=== PATIENT | male | born 1995 | race African-American/Black ===

== ENCOUNTER 2019-01-14 02:06 | Observation (INO) | payer SELFPAY ==
[2019-01-14] MEDS ORDERED: NORMAL SALINE 250 ML IV PRN (02:17)
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
[2019-01-14] MEDS ORDERED: CEFAZOLIN 2 GM/D5W RTU 2 GM/50 ML RTUPB IV ONE (02:25)
[2019-01-14 02:26] LABS: ABSOLUTE BASOPHILS # (AUTO) 0.1 10^3/uL (0.0-0.2); ABSOLUTE EOSINOPHILS # (AUTO) 0.2 10^3/uL (0.0-0.6); ABSOLUTE LYMPHOCYTES (AUTO) 5.8 10^3/uL (0.5-4.7); ABSOLUTE MONOCYTES (AUTO) 0.9 10^3/uL (0.1-1.4); ABSOLUTE NEUT (AUTO) 4.4 10^3/uL (1.7-8.2); BASOPHILS % (AUTO) 1.2 % (0-2); EOSINOPHILS % (AUTO) 1.3 % (0-6); HEMATOCRIT 43.8 % (37.9-51.0); HEMOGLOBIN 15.6 g/dL (13.5-17.0); LYMPHOCYTES % (AUTO) 50.9 % (13-45); MEAN CORPUSCULAR HEMOGLOBIN 30.5 pg (27.0-33.4); MEAN CORPUSCULAR HGB CONC 35.7 g/dL (32.0-36.0); MEAN CORPUSCULAR VOLUME 85 fl (80-97); PLATELET COUNT 273 10^3/uL (150-450); RED BLOOD COUNT 5.13 10^6/uL (4.35-5.55); RED CELL DISTRIBUTION WIDTH 13.1 % (11.5-14.0); SEGMENTED NEUTROPHILS % (AUTO) 38.6 % (42-78); TOTAL CELLS COUNTED % (AUTO) 100 %; VENOUS BLOOD BASE EXCESS -2.3 mmol/L; VENOUS BLOOD PCO2 41.5 mmHg (35-63); VENOUS BLOOD PH 7.36 (7.30-7.42); WHITE BLOOD COUNT 11.3 10^3/uL (4.0-10.5)
[2019-01-14 02:32] LABS: INTERNATIONAL RATION (INR) 1.03; PROTHROMBIN TIME 13.5 SEC (11.4-15.4)
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
[2019-01-14] MEDS ORDERED: BUPIVACAINE HCL 0.25% /EPINEPHRINE INJ/PF 30 ML SDV ONE (02:38)
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
[2019-01-14 02:43] LABS: ALANINE AMINOTRANSFERASE 23 U/L (21-72); ALBUMIN 4.9 g/dL (3.5-5.0); ALKALINE PHOSPHATASE 86 U/L (38-126); ANION GAP 16 (5-19); ASPARTATE AMINO TRANSFERASE 33 U/L (17-59); BILIRUBIN,DIRECT 0.3 mg/dL (0.0-0.4); BILIRUBIN,TOTAL 0.8 mg/dL (0.2-1.3); BLOOD UREA NITROGEN 15 mg/dL (7-20); CALCIUM 9.7 mg/dL (8.4-10.2); CARBON DIOXIDE 22 mmol/L (22-30); CHLORIDE 105 mmol/L (98-107); GLUCOSE 107 mg/dL (75-110); SODIUM 143.4 mmol/L (137-145); TOTAL PROTEIN 8.4 g/dL (6.3-8.2)
[2019-01-14 02:52] LABS: POTASSIUM 2.9 mmol/L (3.6-5.0)
[2019-01-14] MEDS ORDERED: METRONIDAZOLE 500 MG/NS RTU 500 MG/100 ML RTUPB IV ONE (03:00)
[2019-01-14] MEDS ORDERED: MIDAZOLAM 2 MG/2 ML INJ ONE (03:22)
[2019-01-14] MEDS ORDERED: FENTANYL CITRATE INJ/PF 100 MCG/2 ML AMPUL ONE (03:22)
[2019-01-14] MEDS ORDERED: MORPHINE SULFATE 10 MG/ML INJ ONE ×2 (03:23→05:30)
[2019-01-14] MEDS ORDERED: PROPOFOL INJ 200 MG/20 ML VIAL IV ONE (03:23)
[2019-01-14] MEDS ORDERED: SUGAMMADEX SODIUM 200 MG/2 ML SDV IV ONE (04:02)
[2019-01-14] MEDS ORDERED: POTASSI CL 20 MEQ/D5-1/2NS 1L 1,000 ML IV PRN (04:24)
[2019-01-14] MEDS ORDERED: MORPHINE SULFATE 10 MG/ML INJ IV PRN ×7 (04:24→10:30)
[2019-01-14] MEDS ORDERED: ONDANSETRON HCL INJ/PF 4 MG/2 ML SDV IV PRN (04:24)
[2019-01-14] MEDS ORDERED: FUROSEMIDE INJ/PF 40 MG/4 ML SDV ONE ×2 (04:36→05:25)
[2019-01-14] MEDS ORDERED: DEXAMETHASONE SOD PHOSPHATE INJ 4 MG/1 ML VIAL ONE (04:47)
[2019-01-14] MEDS ORDERED: DEXAMETHASONE SOD PHOS INJ 10 MG/1 ML VIAL ONE (04:48)
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
[2019-01-14] MEDS ORDERED: SUCCINYLCHOLINE CHLORIDE INJ 200 MG/10 ML VIAL ONE (05:00)
[2019-01-14] MEDS ORDERED: ROCURONIUM BROMIDE INJ 50 MG/5 ML VIAL IV ONE ×2 (05:00→14:40)
[2019-01-14] MEDS ORDERED: RACEPINEPHRINE HCL 2.25% NEB 0.5 ML AMPUL NEB ONE (05:06)
--- NOTE | 2019-01-14 05:09 | RADIOLOGY REPORT (SQ) ---
CLINICAL HISTORY: post op COMPARISON: January 14, 2019. TECHNIQUE: XR CHEST 1 VIEW 01/14/2019 4:32 AM CDT FINDINGS: Cardiac silhouette is normal in size. There are diffuse opacities involving both lungs. The stomach is distended with air. There is no pleural effusion. There is no pneumothorax. There are no acute osseous findings. IMPRESSION: Diffuse bilateral opacities. This could represent extensive pulmonary edema versus diffuse pneumonia.
[2019-01-14 05:59] LABS: ARTERIAL BLOOD BASE EXCESS -1.7 mmol/L; ARTERIAL BLOOD H2CO3 1.79 mmol/L (1.05-1.35); ARTERIAL BLOOD HCO3 26.8 mmol/L (20-24); ARTERIAL BLOOD O2 SATURATION 65.3 % (94-98); ARTERIAL BLOOD PCO2 59.5 mmHg (35-45); ARTERIAL BLOOD PH 7.27 (7.35-7.45); ARTERIAL BLOOD TOTAL CO2 28.6 mmol/L (23-27)
[2019-01-14 06:01] LABS: HEMATOCRIT 47.1 % (37.9-51.0); MEAN CORPUSCULAR HEMOGLOBIN 30.6 pg (27.0-33.4); MEAN CORPUSCULAR VOLUME 85 fl (80-97); PLATELET COUNT 290 10^3/uL (150-450); RED BLOOD COUNT 5.55 10^6/uL (4.35-5.55); RED CELL DISTRIBUTION WIDTH 13.2 % (11.5-14.0); WHITE BLOOD COUNT 22.4 10^3/uL (4.0-10.5)
[2019-01-14 06:08] LABS: ARTERIAL BLOOD FIO2 15 L
[2019-01-14] MEDS ORDERED: FUROSEMIDE INJ/PF 40 MG/4 ML SDV IV ONE (06:15)
[2019-01-14 06:18] LABS: ABSOLUTE MONOCYTES # (MANUAL) 1.1 10^3/uL (0.1-1.4); BAND NEUTROPHILS % (MANUAL) 1 % (3-5); BASOPHILS % (MANUAL) 0 % (0-2); EOSINOPHILS % (MANUAL) 0 % (0-6); LYMPHOCYTES % (MANUAL) 9 % (13-45); MONOCYTES % (MANUAL) 5 % (3-13); PLATELET COMMENT ADEQUATE; SEGMENTED NEUTROPHILS % (MAN) 85 % (42-78); TOTAL CELLS COUNTED 100
[2019-01-14 06:20] LABS: RBC MORPHOLOGY COMMENT NORMO-CYTIC/CHROMIC
[2019-01-14] MEDS ORDERED: MORPHINE SULFATE 10 MG/ML INJ IV ONE (06:20)
[2019-01-14 06:32] LABS: ALANINE AMINOTRANSFERASE 32 U/L (21-72); ALBUMIN 4.7 g/dL (3.5-5.0); ALKALINE PHOSPHATASE 107 U/L (38-126); ANION GAP 10 (5-19); ASPARTATE AMINO TRANSFERASE 30 U/L (17-59); BILIRUBIN,DIRECT 0.4 mg/dL (0.0-0.4); BILIRUBIN,TOTAL 0.7 mg/dL (0.2-1.3); BLOOD UREA NITROGEN 14 mg/dL (7-20); CARBON DIOXIDE 28 mmol/L (22-30); CHLORIDE 103 mmol/L (98-107); CREATINE KINASE 337 U/L (55-170); GLUCOSE 193 mg/dL (75-110); POTASSIUM 3.2 mmol/L (3.6-5.0); SODIUM 140.5 mmol/L (137-145)
[2019-01-14 06:43] LABS: CREATINE KINASE MB 2.15 ng/mL (<4.55)
[2019-01-14 06:45] LABS: TROPONIN I < 0.012 ng/mL
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
[2019-01-14] MEDS ORDERED: ACETAMINOPHEN 650 MG SUPP.RECT PR PRN (06:57)
[2019-01-14] MEDS ORDERED: LEVALBUTEROL HCL NEB 0.63 MG/3 ML AMPUL NEB PRN (06:57)
[2019-01-14] MEDS ORDERED: NICOTINE 21 MG/24 HR PATCH.TD24 TD PRN (06:59)
[2019-01-14 07:01] LABS: ARTERIAL BLOOD BASE EXCESS -0.9 mmol/L; ARTERIAL BLOOD H2CO3 1.59 mmol/L (1.05-1.35); ARTERIAL BLOOD HCO3 26.4 mmol/L (20-24); ARTERIAL BLOOD O2 SATURATION 97.5 % (94-98); ARTERIAL BLOOD PCO2 52.9 mmHg (35-45); ARTERIAL BLOOD PH 7.32 (7.35-7.45); ARTERIAL BLOOD PO2 108.5 mmHg (80-100)
[2019-01-14 07:04] LABS: ARTERIAL BLOOD FIO2 100%
[2019-01-14] MEDS ORDERED: MORPHINE SULFATE INJ PF 2 MG/2 ML AMPULE IV PRN ×3 (08:13→08:14)
[2019-01-14 09:20] LABS: URINE AMPHETAMINES SCREEN NEGATIVE; URINE BARBITURATES SCREEN NEGATIVE; URINE COCAINE SCREEN NEGATIVE; URINE METHADONE SCREEN NEGATIVE; URINE PHENCYCLIDINE SCREEN NEGATIVE
[2019-01-14] MEDS ORDERED: PROPOFOL 1,000 MG/100 ML INFUS..BTL IV ONE (09:35)
[2019-01-14] MEDS ORDERED: PHARMACY COMMUNICATION ORDER MC NR ×2 (09:45)
[2019-01-14] MEDS ORDERED: MIDAZOLAM HCL 50 MG/100 ML RTUINJ IV PRN (09:51)
[2019-01-14] MEDS ORDERED: NORMAL SALINE 500 ML with ROCURONIUM BROMIDE 500 MG IV PRN ×2 (09:52)
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
[2019-01-14] MEDS ORDERED: VANCOMYCIN HCL INJ 1000 MG VIAL IV SCH (10:00)
[2019-01-14] MEDS ORDERED: FAMOTIDINE INJ/PF 20 MG/2 ML SDV IV SCH (10:00)
[2019-01-14] MEDS: PROPOFOL 1,000 MG/100 ML INFUS..BTL IV PRN ×2 (10:04→10:50)
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
[2019-01-14] MEDS ORDERED: VANCOMYCIN HCL 1,500 MG in NORMAL SALINE 250 ML IV ONE (10:30)
[2019-01-14 11:22] LABS: URINE BENZODIAZEPINES SCREEN UNCONFIRMED POSITIVE; URINE MARIJUANA (THC) SCREEN UNCONFIRMED POSITIVE
[2019-01-14 11:28] VITALS: BP 80/44
--- NOTE | 2019-01-14 12:01 | RADIOLOGY REPORT (SQ) ---
EXAM DESCRIPTION: CHEST SINGLE VIEW COMPLETED DATE/TIME: 01/14/2019 10:45 am REASON FOR STUDY: Post Intubation/ ET Tube Placement COMPARISON: Earlier same day. NUMBER OF VIEWS: One view. TECHNIQUE: Single frontal radiographic image of the chest acquired. LIMITATIONS: None. FINDINGS: LUNGS AND PLEURA: Bilateral airspace disease not significantly changed. No pneumothorax. MEDIASTINUM AND HEART: Stable heart size and mediastinal structures. SUPPORT DEVICES: Endotracheal tube tip between thoracic inlet and [place]. Nasogastric tube extends i nto the left upper quadrant. BONY STRUCTURES: No acute findings. HARDWARE: None. OTHER: No other significant finding. IMPRESSION: Satisfactory position of support apparatus. No pneumothorax. Reading location - IP/workstation name: [email or web address]
[2019-01-14] MEDS ORDERED: CLINDAMYCIN 900 MG/D5W RTU 900 MG/50 ML RTUPB IV SCH (14:00)
== END 2019-01-14 11:47 | disposition short-term general hospital (02) ==
LOC: ER 02:06 → INTOOBSV 02:36 → EEVIPCON 02:36 → EH 02:36 → ICU 05:04
PROVIDERS: ADMIT Surgery; ATTEND Surgery
PROC: 0WJG4ZZ Inspection of Peritoneal Cavity, Percutaneous Endoscopic Approach (ICD-10-PCS; principal; 2019-01-14 03:45)
DX: S31.131A Puncture wound of abdominal wall without foreign body, left upper quadrant without penetration into peritoneal cavity, initial encounter (principal); S31.000A Unspecified open wound of lower back and pelvis without penetration into retroperitoneum, initial encounter; W34.00XA Accidental discharge from unspecified firearms or gun, initial encounter; Y92.89 Other specified places as the place of occurrence of the external cause; J69.0 Pneumonitis due to inhalation of food and vomit; R00.0 Tachycardia, unspecified; E87.6 Hypokalemia; I10 Essential (primary) hypertension; R04.2 Hemoptysis; J95.89 Other postprocedural complications and disorders of respiratory system, not elsewhere classified; J81.0 Acute pulmonary edema; R45.1 Restlessness and agitation; J96.01 Acute respiratory failure with hypoxia; E66.9 Obesity, unspecified; Y84.8 Other medical procedures as the cause of abnormal reaction of the patient, or of later complication, without mention of misadventure at the time of the procedure; F17.200 Nicotine dependence, unspecified, uncomplicated
CPT/HCPCS: 99291; 86900; 86901; 36415; 87040; 82553; 86850; 82803 ×2; 82550; 83605; 83735; 85025; 85610; 85730; 87070; 80053; 84484; 80307; 86920; 71045; 94660; 94002; 00790; 31500; 49320; G0378 ×2; C1751; J2250 ×2; J3490 ×4; J3010; J1940; J2704 ×2; J2270; J3480; J0330; J7040; J1100; J0690; 790